=== PATIENT | male | born 1960 | race African-American/Black ===

== ENCOUNTER 2020-11-08 13:01 | Emergency (ER) | payer OTHER ==
[~2020-11-08] VITALS: Ht 170.2 cm; Wt 81.6 kg
[2020-11-08] MEDS ORDERED: HYDROCODONE/APAP 7.5MG-325MG 1 EA TAB PO PRN (16:15)
== END 2020-11-08 17:17 ==
LOC: ER 13:30
DX: S00.83XA Contusion of other part of head, initial encounter (principal); M25.552 Pain in left hip; W07.XXXA Fall from chair, initial encounter; Y92.128 Other place in nursing home as the place of occurrence of the external cause; I12.0 Hypertensive chronic kidney disease with stage 5 chronic kidney disease or end stage renal disease; E11.22 Type 2 diabetes mellitus with diabetic chronic kidney disease; N18.6 End stage renal disease; Z99.2 Dependence on renal dialysis; I50.9 Heart failure, unspecified; J44.9 Chronic obstructive pulmonary disease, unspecified; D64.9 Anemia, unspecified; K21.9 Gastro-esophageal reflux disease without esophagitis; E78.5 Hyperlipidemia, unspecified; I73.9 Peripheral vascular disease, unspecified; I25.2 Old myocardial infarction
CPT/HCPCS: 70450; 72125; 99283

== ENCOUNTER 2020-11-26 12:25 | Inpatient (IN) | payer MEDICAID, OTHER ==
[~2020-11-26] VITALS: Ht 170.2 cm; Wt 78.0 kg
[2020-11-26] MEDS ORDERED: ACETAMINOPHEN 650 MG SUPP PR ONE ×2 (12:57→13:45)
[2020-11-26] MEDS ORDERED: ACETAMINOPHEN 325 MG SUPP PR ONE (13:00)
[2020-11-26 13:11] LABS: BASOPHILS % 0.5 % (0.0-1.0); EOSINOPHILS % 0.6 % (0.0-6.0); HEMATOCRIT 39.9 % (38.2-49.6); HEMOGLOBIN 13.3 g/dL (14.0-18.0); LYMPHOCYTES # (AUTO) 0.8 (1.0-3.2); LYMPHOCYTES % 12.2 % (18.0-39.1); MEAN CORPUSCULAR HEMOGLOBIN 31.3 pg (28-32); MEAN CORPUSCULAR HGB CONC 33.3 g/dL (31-35); MEAN CORPUSCULAR VOLUME 93.9 fL (81-99); MONOCYTES # (AUTO) 0.6 (0.2-0.8); MONOCYTES % 9.7 % (4.4-11.3); NEUTROPHILS # (AUTO) 4.9 (2.1-6.9); NEUTROPHILS % 76.8 % (38.7-80.0); PLATELET COUNT 105 x10e3/uL (140-360); RED BLOOD COUNT 4.25 x10e6/uL (4.3-5.7); RED CELL DISTRIBUTION WIDTH 17.4 % (11.7-14.4)
[2020-11-26] MEDS ORDERED: CEFEPIME HCL 1 GM VIAL IV SCH (13:15)
[2020-11-26 13:29] LABS: ALBUMIN 3.1 g/dL (3.5-5.0); ALBUMIN/GLOBULIN RATIO 0.6 (0.8-2.0); CALCIUM 8.5 mg/dL (8.4-10.2); CREATININE, SERUM 6.96 mg/dL (0.72-1.25)
[2020-11-26] MEDS: CEFEPIME HCL 1GM 1 GM in SODIUM CHLORIDE 0.9% 50ML 50 ML IV SCH ×2 (13:32→13:46)
[2020-11-26] MEDS: SODIUM CHLORIDE 0.9% 1000ML 1,000 ML IV SCH (13:32)
[2020-11-26 13:48] LABS: BACTERIA,URINE MANY /HPF; CLARITY,URINE SL CLOUDY (CLEAR); COLOR,URINE AMBER (YELLOW); EPITHELIAL CELLS,URINE RARE /LPF; KETONES,URINE 1+ (NEGATIVE); LEUKOCYTE ESTERASE ,URINE TRACE (NEGATIVE); NITRITE,URINE NEGATIVE (NEGATIVE); PROTEIN,URINE DIPSTICK >=300 (NEGATIVE); URINE UROBILINOGEN 0.2 mg/dL (0.2 - 1)
[2020-11-26] MEDS: VANCOMYCIN 500MG/NS 0.9% 100ML 100 ML IV SCH (13:48)
[2020-11-26] MEDS ORDERED: CLOPIDOGREL75 MG PO (13:54)
[2020-11-26] MEDS ORDERED: ASCORBIC ACID500 M2 PO (13:54)
[2020-11-26] MEDS ORDERED: ASPIRIN81 MG PO (13:54)
[2020-11-26] MEDS ORDERED: DOCUSATE SODIU100 MG PO (13:54)
[2020-11-26] MEDS ORDERED: FAMOTIDINE20 MG PO (13:54)
[2020-11-26] MEDS ORDERED: LIPITOR20 MG PO (13:54)
[2020-11-26] MEDS ORDERED: BUMETANIDE1 MG PO (13:54)
[2020-11-26] MEDS ORDERED: HYDRALAZINE HCL25 MG PO (14:23)
[2020-11-26] MEDS ORDERED: HUMALOG100 UNIT/3 (14:23)
[2020-11-26] MEDS ORDERED: ADVAIR 100-501 EACH INH (14:23)
[2020-11-26] MEDS ORDERED: COMBIVENT RESPIM4 GM IH (14:23)
[2020-11-26] MEDS ORDERED: RENA-VITE RX T1 EACH PO (14:23)
[2020-11-26] MEDS ORDERED: VENTOLIN HFA18 GM INH (14:23)
[2020-11-26] MEDS ORDERED: ISOSORBIDE MONO30 MG PO (14:23)
[2020-11-26] MEDS ORDERED: RENAGEL800 MG PO (14:23)
[2020-11-26] MEDS ORDERED: GLYCOLAX119 GM PO (14:23)
[2020-11-26] MEDS ORDERED: MIDODRINE HCL5 MG PO (14:23)
[2020-11-26] MEDS ORDERED: HYDROCODONE PO (14:23)
[2020-11-26] MEDS ORDERED: LYRICA150 MG PO (14:23)
[2020-11-26] MEDS ORDERED: NITROGLYCERIN0.4 MG SL (14:23)
[2020-11-26] MEDS ORDERED: IOPAMIDOL 370 MG/ML 200 ML INFUS..BTL INJ ONE (14:29)
[2020-11-26] MEDS ORDERED: SODIUM CHLORIDE 0.9% 50ML 50 ML ONE (14:29)
[2020-11-26] MEDS ORDERED: DEXTROSE 50% SYRINGE 50 ML IV PRN (14:45)
[2020-11-26 16:00] VITALS: BP 105/74
[2020-11-26 16:08] VITALS: BP 105/74
[2020-11-26] MEDS: INSULIN LISPRO 100 UNIT/1 ML 3ML VIAL SQ SCH ×2 (16:30→21:00)
[2020-11-26 20:00] VITALS: BP 105/74
[2020-11-26 20:28] VITALS: BP 102/78
[2020-11-27] VITALS (7 sets, daily range): BP systolic 98–142; BP diastolic 72–87
[2020-11-27] MEDS: VANCOMYCIN 500MG/NS 0.9% 100ML 100 ML IV SCH ×2 (03:46→14:16)
[2020-11-27] MEDS: SODIUM CHLORIDE 0.9% 1000ML 1,000 ML IV SCH ×2 (03:47→10:45)
[2020-11-27] MEDS ORDERED: SODIUM CHLORIDE 0.9% 100 ML ONE (03:51)
[2020-11-27 06:13] LABS: BASOPHILS % 0.6 % (0.0-1.0); EOSINOPHILS # (AUTO) 0.1 (0.0-0.4); EOSINOPHILS % 0.9 % (0.0-6.0); HEMATOCRIT 38.1 % (38.2-49.6); HEMOGLOBIN 12.7 g/dL (14.0-18.0); LYMPHOCYTES % 17.9 % (18.0-39.1); MEAN CORPUSCULAR HEMOGLOBIN 30.9 pg (28-32); MEAN CORPUSCULAR HGB CONC 33.3 g/dL (31-35); MEAN CORPUSCULAR VOLUME 92.7 fL (81-99); MONOCYTES # (AUTO) 0.7 (0.2-0.8); MONOCYTES % 12.4 % (4.4-11.3); NEUTROPHILS # (AUTO) 3.6 (2.1-6.9); PLATELET COUNT 106 x10e3/uL (140-360); RED BLOOD COUNT 4.11 x10e6/uL (4.3-5.7); RED CELL DISTRIBUTION WIDTH 17.2 % (11.7-14.4)
[2020-11-27 07:14] LABS: CALCIUM 8.4 mg/dL (8.4-10.2); CREATININE, SERUM 7.88 mg/dL (0.72-1.25)
[2020-11-27] MEDS: INSULIN LISPRO 100 UNIT/1 ML 3ML VIAL SQ SCH ×4 (07:30→21:00)
[2020-11-27] MEDS: CEFEPIME HCL 1GM 1 GM in SODIUM CHLORIDE 0.9% 50ML 50 ML IV SCH (14:16)
[2020-11-27] MEDS ORDERED: CEFEPIME HCL 1 GM VIAL ONE (14:17)
[2020-11-27] MEDS ORDERED: SODIUM CHLORIDE 0.9% 50ML 50 ML ONE (14:18)
[2020-11-27] MEDS: AZITHROMYCIN 500MG/NS 250 ML 250 ML IV SCH (16:00)
[2020-11-27] MEDS ORDERED: NITROGLYCERIN 0.4 MG SUBL SL SCH (16:00)
[2020-11-27] MEDS: HYDRALAZINE HCL 25 MG TAB PO SCH ×2 (16:15→22:00)
[2020-11-27] MEDS: DOCUSATE SODIUM 100 MG CAP PO SCH (17:39)
[2020-11-27] MEDS: BUMETANIDE 1 MG TAB PO SCH (17:39)
[2020-11-27] MEDS: PREGABALIN 75 MG CAP PO SCH (17:39)
[2020-11-27] MEDS ORDERED: SODIUM CHLORIDE 0.9% 1000ML 2,000 ML ONE (18:41)
[2020-11-27] MEDS: ALBUTEROL/IPRATROPIUM 3 ML NEB NEB SCH ×2 (20:10→23:00)
[2020-11-27] MEDS: SALMETEROL/FLUTICASONE 100/50 INH SCH (20:10)
[2020-11-27] MEDS ORDERED: HEPARIN SOD (PORCINE) 1000 UNIT/ML SDV ONE (23:15)
[2020-11-27] MEDS: ATORVASTATIN 20 MG TAB PO SCH (23:37)
[2020-11-27] MEDS: SEVELAMER CARBONATE 800 MG TAB PO SCH (23:37)
[2020-11-28] VITALS (7 sets, daily range): BP systolic 82–120; BP diastolic 39–69
[2020-11-28] MEDS: ALBUTEROL/IPRATROPIUM 3 ML NEB NEB SCH ×6 (03:00→23:42)
[2020-11-28] MEDS ORDERED: ACETAMINOPHEN 325 MG TAB PO PRN (04:45)
[2020-11-28] MEDS: HYDRALAZINE HCL 25 MG TAB PO SCH (06:00)
[2020-11-28 07:18] LABS: BASOPHILS % 0.5 % (0.0-1.0); EOSINOPHILS # (AUTO) 0.2 (0.0-0.4); EOSINOPHILS % 4.4 % (0.0-6.0); HEMATOCRIT 34.7 % (38.2-49.6); HEMOGLOBIN 11.9 g/dL (14.0-18.0); LYMPHOCYTES # (AUTO) 0.9 (1.0-3.2); LYMPHOCYTES % 20.6 % (18.0-39.1); MEAN CORPUSCULAR HEMOGLOBIN 31.4 pg (28-32); MEAN CORPUSCULAR HGB CONC 34.3 g/dL (31-35); MEAN CORPUSCULAR VOLUME 91.6 fL (81-99); MONOCYTES # (AUTO) 0.7 (0.2-0.8); MONOCYTES % 17.1 % (4.4-11.3); NEUTROPHILS # (AUTO) 2.4 (2.1-6.9); NEUTROPHILS % 57.2 % (38.7-80.0); PLATELET COUNT 81 x10e3/uL (140-360); RED BLOOD COUNT 3.79 x10e6/uL (4.3-5.7); RED CELL DISTRIBUTION WIDTH 17.2 % (11.7-14.4)
[2020-11-28] MEDS: INSULIN LISPRO 100 UNIT/1 ML 3ML VIAL SQ SCH ×4 (07:30→21:00)
[2020-11-28 07:38] LABS: ALBUMIN 2.6 g/dL (3.5-5.0); ALBUMIN/GLOBULIN RATIO 0.6 (0.8-2.0); ANION GAP 16.9 mmol/L (8-16); CALCIUM 8.3 mg/dL (8.4-10.2); CREATININE, SERUM 5.67 mg/dL (0.72-1.25); POTASSIUM 3.9 mmol/L (3.5-5.1)
[2020-11-28] MEDS: CEFEPIME HCL 1GM 1 GM in SODIUM CHLORIDE 0.9% 50ML 50 ML IV SCH ×2 (09:00→09:16)
[2020-11-28] MEDS: ISOSORBIDE MONONITRATE 30 MG TAB CR PO SCH (09:00)
[2020-11-28] MEDS: BUMETANIDE 1 MG TAB PO SCH ×2 (09:00→17:00)
[2020-11-28] MEDS: DOCUSATE SODIUM 100 MG CAP PO SCH ×2 (09:19→17:50)
[2020-11-28] MEDS: ASPIRIN 81 MG CHEW TAB PO SCH (09:19)
[2020-11-28] MEDS: FAMOTIDINE 20 MG TAB PO SCH (09:19)
[2020-11-28] MEDS: PREGABALIN 75 MG CAP PO SCH ×2 (09:19→17:51)
[2020-11-28] MEDS: CLOPIDOGREL BISULFATE 75 MG TAB PO SCH (09:19)
[2020-11-28] MEDS: SEVELAMER CARBONATE 800 MG TAB PO SCH ×3 (09:20→21:47)
[2020-11-28] MEDS: FOLIC ACID/CYANOCOB/PYRIDOXINE TAB PO SCH (09:20)
[2020-11-28] MEDS: SALMETEROL/FLUTICASONE 100/50 INH SCH ×2 (11:32→17:37)
[2020-11-28] MEDS: AZITHROMYCIN 500MG/NS 250 ML 250 ML IV SCH (15:25)
[2020-11-28] MEDS: MIDODRINE HCL 5 MG TABLET PO SCH (21:47)
[2020-11-28] MEDS: HYDROCODONE/APAP 7.5MG-325MG 1 EA TAB PO PRN (21:47)
[2020-11-28] MEDS: ATORVASTATIN 20 MG TAB PO SCH (21:47)
[2020-11-29] VITALS (9 sets, daily range): BP systolic 88–109; BP diastolic 63–76
[2020-11-29] MEDS: ALBUTEROL/IPRATROPIUM 3 ML NEB NEB SCH ×6 (03:45→23:00)
[2020-11-29 06:57] LABS: BASOPHILS % 0.2 % (0.0-1.0); EOSINOPHILS # (AUTO) 0.2 (0.0-0.4); EOSINOPHILS % 4.7 % (0.0-6.0); HEMATOCRIT 34.8 % (38.2-49.6); HEMOGLOBIN 11.8 g/dL (14.0-18.0); LYMPHOCYTES # (AUTO) 1.3 (1.0-3.2); LYMPHOCYTES % 28.3 % (18.0-39.1); MEAN CORPUSCULAR HEMOGLOBIN 31.4 pg (28-32); MEAN CORPUSCULAR HGB CONC 33.9 g/dL (31-35); MEAN CORPUSCULAR VOLUME 92.6 fL (81-99); MONOCYTES # (AUTO) 0.8 (0.2-0.8); MONOCYTES % 17.9 % (4.4-11.3); NEUTROPHILS # (AUTO) 2.2 (2.1-6.9); NEUTROPHILS % 48.7 % (38.7-80.0); PLATELET COUNT 90 x10e3/uL (140-360); RED BLOOD COUNT 3.76 x10e6/uL (4.3-5.7); RED CELL DISTRIBUTION WIDTH 17.2 % (11.7-14.4)
[2020-11-29] MEDS: INSULIN LISPRO 100 UNIT/1 ML 3ML VIAL SQ SCH ×4 (07:30→21:00)
[2020-11-29 07:39] LABS: ALBUMIN 2.6 g/dL (3.5-5.0); ALBUMIN/GLOBULIN RATIO 0.6 (0.8-2.0); ANION GAP 17.3 mmol/L (8-16); CREATININE, SERUM 7.02 mg/dL (0.72-1.25); POTASSIUM 4.3 mmol/L (3.5-5.1)
[2020-11-29] MEDS: SALMETEROL/FLUTICASONE 100/50 INH SCH ×2 (08:56→19:17)
[2020-11-29] MEDS: CLOPIDOGREL BISULFATE 75 MG TAB PO SCH (09:39)
[2020-11-29] MEDS: FOLIC ACID/CYANOCOB/PYRIDOXINE TAB PO SCH (09:39)
[2020-11-29] MEDS: ISOSORBIDE MONONITRATE 30 MG TAB CR PO SCH (09:39)
[2020-11-29] MEDS: DOCUSATE SODIUM 100 MG CAP PO SCH ×2 (09:39→16:31)
[2020-11-29] MEDS: SEVELAMER CARBONATE 800 MG TAB PO SCH ×3 (09:39→21:16)
[2020-11-29] MEDS: PREGABALIN 75 MG CAP PO SCH ×2 (09:39→16:31)
[2020-11-29] MEDS: CEFEPIME HCL 1GM 1 GM in SODIUM CHLORIDE 0.9% 50ML 50 ML IV SCH (09:39)
[2020-11-29] MEDS: BUMETANIDE 1 MG TAB PO SCH ×2 (09:39→16:31)
[2020-11-29] MEDS: MIDODRINE HCL 5 MG TABLET PO SCH ×2 (09:39→16:31)
[2020-11-29] MEDS: ASPIRIN 81 MG CHEW TAB PO SCH (09:39)
[2020-11-29] MEDS: FAMOTIDINE 20 MG TAB PO SCH (09:39)
[2020-11-29] MEDS: HYDROCODONE/APAP 7.5MG-325MG 1 EA TAB PO PRN ×2 (09:41→21:16)
[2020-11-29] MEDS: AZITHROMYCIN 500MG/NS 250 ML 250 ML IV SCH (15:09)
[2020-11-29] MEDS: ATORVASTATIN 20 MG TAB PO SCH (21:16)
[2020-11-30 00:32] VITALS: BP 88/64
[2020-11-30] MEDS: ALBUTEROL/IPRATROPIUM 3 ML NEB NEB SCH ×4 (02:30→15:00)
[2020-11-30 06:07] VITALS: BP 102/78
[2020-11-30] MEDS: INSULIN LISPRO 100 UNIT/1 ML 3ML VIAL SQ SCH ×3 (07:30→16:07)
[2020-11-30 08:02] VITALS: BP 95/75
[2020-11-30 08:18] VITALS: BP 95/75
[2020-11-30] MEDS: SALMETEROL/FLUTICASONE 100/50 INH SCH (08:49)
[2020-11-30] MEDS: BUMETANIDE 1 MG TAB PO SCH ×2 (09:00→16:06)
[2020-11-30] MEDS: DOCUSATE SODIUM 100 MG CAP PO SCH ×2 (09:00→16:06)
[2020-11-30] MEDS: SEVELAMER CARBONATE 800 MG TAB PO SCH ×2 (09:00→16:06)
[2020-11-30] MEDS: ASPIRIN 81 MG CHEW TAB PO SCH (09:00)
[2020-11-30] MEDS: CEFEPIME HCL 1GM 1 GM in SODIUM CHLORIDE 0.9% 50ML 50 ML IV SCH (09:00)
[2020-11-30] MEDS ORDERED: COLLAGENASE 5 GM TUBE TOP SCH (09:00)
[2020-11-30] MEDS: FOLIC ACID/CYANOCOB/PYRIDOXINE TAB PO SCH (09:00)
[2020-11-30] MEDS: ISOSORBIDE MONONITRATE 30 MG TAB CR PO SCH (09:00)
[2020-11-30] MEDS ORDERED: BALSAM PERU/CASTOR OIL 60 GM OINT...G. TP SCH (09:00)
[2020-11-30] MEDS: CLOPIDOGREL BISULFATE 75 MG TAB PO SCH (09:00)
[2020-11-30] MEDS: PREGABALIN 75 MG CAP PO SCH ×2 (09:00→16:06)
[2020-11-30] MEDS: MIDODRINE HCL 5 MG TABLET PO SCH ×2 (09:15→16:06)
[2020-11-30] MEDS: FAMOTIDINE 20 MG TAB PO SCH (09:15)
[2020-11-30] MEDS ORDERED: ONDANSETRON HCL INJ 2MG/ML 2ML 2 MG/ML VIAL IV PRN (09:30)
[2020-11-30] MEDS ORDERED: ONDANSETRON HCL INJ 2MG/ML 2ML 2 MG/ML VIAL IV ONE (09:45)
[2020-11-30] MEDS ORDERED: SODIUM CHLORIDE 0.9% 1000ML 2,000 ML IV PRN (11:45)
[2020-11-30] MEDS ORDERED: ALBUMIN 25% 12.5GM 0.25 GM/ML BTL IV PRN (11:45)
[2020-11-30] MEDS ORDERED: HEPARIN SOD (PORCINE) 1000 UNIT/ML SDV IV PRN (11:45)
[2020-11-30] MEDS ORDERED: SODIUM CHLORIDE 0.9% 250ML 500 ML IV PRN (11:45)
[2020-11-30 11:47] VITALS: BP 109/74
[2020-11-30 15:56] VITALS: BP 100/65
[2020-11-30] MEDS: AZITHROMYCIN 500MG/NS 250 ML 250 ML IV SCH (16:06)
== END 2020-11-30 18:08 | DRG 177 ==
LOC: ER 12:32 → ERHOLD 15:21 → MED/SURG3 15:42
PROC: 5A1D70Z Performance of Urinary Filtration, Intermittent, Less than 6 Hours Per Day (ICD-10-PCS; principal; 2020-11-27)
DX: J15.6 Pneumonia due to other Gram-negative bacteria (principal); N18.6 End stage renal disease; I50.33 Acute on chronic diastolic (congestive) heart failure; J44.0 Chronic obstructive pulmonary disease with (acute) lower respiratory infection; I13.2 Hypertensive heart and chronic kidney disease with heart failure and with stage 5 chronic kidney disease, or end stage renal disease; I69.354 Hemiplegia and hemiparesis following cerebral infarction affecting left non-dominant side; E11.22 Type 2 diabetes mellitus with diabetic chronic kidney disease; J44.9 Chronic obstructive pulmonary disease, unspecified; Z20.822 Contact with and (suspected) exposure to COVID-19; Z99.2 Dependence on renal dialysis; Z79.899 Other long term (current) drug therapy
CPT/HCPCS: 36415; 51700; 71045; 74177; 80048; 80053; 81001; 82948; 83605; 83690; 83880; 84484; 85025; 86704; 86706; 87040; 87071; 87086; 87205; 87350; 93005; 94640; 99251; 99284; J0456; J0692; J1644; J2405; J3370; J7030; J7050; Q9967; U0002

== ENCOUNTER 2020-12-17 08:39 | Inpatient (IN) | payer MEDICAID ==
[~2020-12-17] VITALS: Ht 170.2 cm; Wt 78.0 kg
[~2020-12-17 08:39] MED LIST: ADVAIR 100-501 EACH INH; ASCORBIC ACID500 M2 PO; ASPIRIN81 MG PO; BUMETANIDE1 MG PO; CLOPIDOGREL75 MG PO; COMBIVENT RESPIM4 GM IH; DOCUSATE SODIU100 MG PO; FAMOTIDINE20 MG PO; GLYCOLAX119 GM PO; HUMALOG100 UNIT/3; HYDRALAZINE HCL25 MG PO; HYDROCODONE PO; ISOSORBIDE MONO30 MG PO; LIPITOR20 MG PO; LYRICA150 MG PO; MIDODRINE HCL5 MG PO; NITROGLYCERIN0.4 MG SL; RENA-VITE RX T1 EACH PO; RENAGEL800 MG PO; VENTOLIN HFA18 GM INH
[2020-12-17] MEDS ORDERED: CEFEPIME 2 GM/NS 0.9% 100 ML 100 ML IV STA ×2 (09:26→10:31)
[2020-12-17 09:27] LABS: ABG HCO3 21 mmol/L (22-26); ABG PCO2 33 mmHg (35-45); ABG PH 7.41 (7.35-7.45); ABG PO2 70 mmHg (80-105); ABG TCO2 22
[2020-12-17 09:28] LABS: BASOPHILS % 0.4 % (0.0-1.0); EOSINOPHILS % 0.4 % (0.0-6.0); HEMATOCRIT 40.6 % (38.2-49.6); HEMOGLOBIN 13.2 g/dL (14.0-18.0); LYMPHOCYTES # (AUTO) 0.6 (1.0-3.2); LYMPHOCYTES % 11.9 % (18.0-39.1); MEAN CORPUSCULAR HEMOGLOBIN 31.4 pg (28-32); MEAN CORPUSCULAR HGB CONC 32.5 g/dL (31-35); MEAN CORPUSCULAR VOLUME 96.4 fL (81-99); MONOCYTES # (AUTO) 0.4 (0.2-0.8); MONOCYTES % 7.1 % (4.4-11.3); NEUTROPHILS # (AUTO) 4.3 (2.1-6.9); NEUTROPHILS % 79.5 % (38.7-80.0); PLATELET COUNT 139 x10e3/uL (140-360); RED BLOOD COUNT 4.21 x10e6/uL (4.3-5.7); RED CELL DISTRIBUTION WIDTH 17.5 % (11.7-14.4)
[2020-12-17] MEDS ORDERED: CEFTRIAXONE SOD 1 GM/50 ML BAG IV ONE (09:30)
[2020-12-17] MEDS ORDERED: SODIUM CHLORIDE 0.9% 500ML 500 ML IV ONE ×2 (09:30→15:00)
[2020-12-17 09:39] LABS: CLARITY,URINE CLOUDY (CLEAR); COLOR,URINE AMBER (YELLOW); KETONES,URINE TRACE (NEGATIVE); LEUKOCYTE ESTERASE ,URINE NEGATIVE (NEGATIVE); NITRITE,URINE NEGATIVE (NEGATIVE); PROTEIN,URINE DIPSTICK >=300 (NEGATIVE); URINE UROBILINOGEN 0.2 mg/dL (0.2 - 1)
[2020-12-17 09:53] LABS: BACTERIA,URINE MODERATE /HPF; EPITHELIAL CELLS,URINE FEW /LPF; WBC,URINE (MAN) 0-5 /HPF (0-5)
[2020-12-17] MEDS ORDERED: VANCOMYCIN 1GM/NS 250 ML 250 ML IV ONE (10:00)
[2020-12-17] MEDS ORDERED: CEFTRIAXONE SOD 1 GM in SODIUM CHLORIDE 0.9% 50ML 50 ML IV ONE (10:00)
[2020-12-17 10:50] LABS: ALBUMIN 3.2 g/dL (3.5-5.0); ALBUMIN/GLOBULIN RATIO 0.5 (0.8-2.0); ANION GAP 21.3 mmol/L (8-16); CALCIUM 9.1 mg/dL (8.4-10.2); CREATININE, SERUM 6.69 mg/dL (0.72-1.25)
[2020-12-17 10:51] LABS: POTASSIUM 6.3 mmol/L (3.5-5.1)
[2020-12-17] MEDS ORDERED: SODIUM BICARBONATE 8.4% INJ 50 ML SYR IV STA (10:59)
[2020-12-17] MEDS ORDERED: DEXTROSE 50% SYRINGE 50 ML IV STA (10:59)
[2020-12-17] MEDS ORDERED: INSULIN REGULAR, HUMAN 100 UNIT/1 ML 3ML VIAL IV ONE (11:00)
[2020-12-17] MEDS ORDERED: CALCIUM GLUCONATE 10% INJ 4.65 MEQ in SODIUM CHLORIDE 0.9% 50ML 50 ML IV ONE (11:00)
[2020-12-17 11:11] LABS: CREATINE KINASE MB 1.8 ng/mL (0-5.0)
[2020-12-17 11:19] LABS: B-TYPE NATRIURETIC PEPTIDE2 91.2 pg/mL (0-100)
[2020-12-17 12:04] LABS: INR 1.3; PROTHROMBIN TIME 16.9 seconds (11.9-14.5)
[2020-12-17 12:05] LABS: PARTIAL THROMBOPLASTIN TIME 41.7 seconds (23.8-35.5)
[2020-12-17] MEDS: INSULIN LISPRO 100 UNIT/1 ML 3ML VIAL SQ SCH ×3 (12:39→23:37)
[2020-12-17] MEDS: PIPERACILLIN/TAZOBACTAM 2.25 GM in SODIUM CHLORIDE 0.9% 50ML 50 ML IV SCH ×2 (14:14→22:00)
[2020-12-17] MEDS: DEXTROSE 50% SYRINGE 50 ML IV PRN ×2 (14:14→23:34)
[2020-12-17 17:32] VITALS: BP 104/89
[2020-12-17 17:43] VITALS: BP 104/89
[2020-12-17 17:51] VITALS: BP 104/89
[2020-12-17 20:00] VITALS: BP 153/113
[2020-12-17 21:00] VITALS: BP 153/113
[2020-12-17] MEDS ORDERED: SODIUM CHLORIDE 0.9% 250ML 250 ML ONE (21:57)
[2020-12-17] MEDS ORDERED: NITROGLYCERIN 0.4 MG SUBL SL PRN (23:45)
[2020-12-17] MEDS ORDERED: ALBUTEROL SULFATE HFA 8GM INHALATION AEROSOL INH PRN (23:45)
[2020-12-17] MEDS ORDERED: HYDROCODONE/APAP 10MG-325MG TAB PO PRN (23:45)
[2020-12-18] VITALS: BP 100/81
[2020-12-18 04:00] VITALS: BP 95/55
[2020-12-18] MEDS: HYDRALAZINE HCL 25 MG TAB PO SCH ×2 (05:23→14:00)
[2020-12-18] MEDS: IPRATROPIUM/ALBUTEROL SULFATE 4 GM INH INH SCH ×2 (05:54→11:50)
[2020-12-18] MEDS: INSULIN LISPRO 100 UNIT/1 ML 3ML VIAL SQ SCH ×2 (05:59→11:55)
[2020-12-18] MEDS: PIPERACILLIN/TAZOBACTAM 2.25 GM in SODIUM CHLORIDE 0.9% 50ML 50 ML IV SCH ×2 (05:59→14:00)
[2020-12-18 06:18] LABS: BASOPHILS % 0.3 % (0.0-1.0); EOSINOPHILS # (AUTO) 0.2 (0.0-0.4); EOSINOPHILS % 4.7 % (0.0-6.0); HEMATOCRIT 31.2 % (38.2-49.6); HEMOGLOBIN 10.3 g/dL (14.0-18.0); LYMPHOCYTES # (AUTO) 0.5 (1.0-3.2); LYMPHOCYTES % 14.4 % (18.0-39.1); MEAN CORPUSCULAR HEMOGLOBIN 31.5 pg (28-32); MEAN CORPUSCULAR VOLUME 95.4 fL (81-99); MONOCYTES # (AUTO) 0.4 (0.2-0.8); MONOCYTES % 11.3 % (4.4-11.3); NEUTROPHILS # (AUTO) 2.2 (2.1-6.9); PLATELET COUNT 77 x10e3/uL (140-360); RED BLOOD COUNT 3.27 x10e6/uL (4.3-5.7); RED CELL DISTRIBUTION WIDTH 17.4 % (11.7-14.4)
[2020-12-18 06:43] LABS: CREATINE KINASE MB 1.2 ng/mL (0-5.0)
[2020-12-18 06:57] LABS: ALBUMIN 2.5 g/dL (3.5-5.0); ALBUMIN/GLOBULIN RATIO 0.5 (0.8-2.0); ANION GAP 15.3 mmol/L (8-16); CALCIUM 8.2 mg/dL (8.4-10.2); CREATININE, SERUM 4.13 mg/dL (0.72-1.25); POTASSIUM 4.3 mmol/L (3.5-5.1)
[2020-12-18 08:09] VITALS: BP 93/72
[2020-12-18 08:10] VITALS: BP 93/72
[2020-12-18] MEDS: DOCUSATE SODIUM 100 MG CAP PO SCH ×2 (09:00→09:55)
[2020-12-18] MEDS ORDERED: SALMETEROL/FLUTICASONE 100/50 INH SCH (09:00)
[2020-12-18] MEDS ORDERED: FAMOTIDINE 20 MG TAB PO SCH (09:00)
[2020-12-18] MEDS ORDERED: POLYETHYLENE GLYCOL 3350 17 GM PACK PO SCH (09:00)
[2020-12-18] MEDS: SEVELAMER CARBONATE 800 MG TAB PO SCH ×2 (09:00→12:03)
[2020-12-18] MEDS ORDERED: CLOPIDOGREL BISULFATE 75 MG TAB PO SCH (09:00)
[2020-12-18] MEDS: BUMETANIDE 1 MG TAB PO SCH ×2 (09:00→09:55)
[2020-12-18] MEDS ORDERED: ASPIRIN 81 MG CHEW TAB PO SCH (09:00)
[2020-12-18] MEDS ORDERED: PREGABALIN 75 MG CAP PO SCH (09:00)
[2020-12-18] MEDS ORDERED: ASCORBIC ACID 500 MG TAB PO SCH (09:00)
[2020-12-18] MEDS ORDERED: MIDODRINE HCL 5 MG TABLET PO SCH (09:00)
[2020-12-18] MEDS ORDERED: ISOSORBIDE MONONITRATE 30 MG TAB CR PO SCH (09:00)
[2020-12-18] MEDS ORDERED: FOLIC ACID/CYANOCOB/PYRIDOXINE TAB PO SCH (09:30)
[2020-12-18 11:35] VITALS: BP 91/64
[2020-12-18 15:45] VITALS: BP 92/65
[2020-12-18] MEDS ORDERED: ATORVASTATIN 20 MG TAB PO SCH (21:00)
== END 2020-12-18 16:53 | DRG 871 ==
LOC: ER 08:43 → ERHOLD 11:48 → MED/SURG3 17:18
PROC: 5A1D70Z Performance of Urinary Filtration, Intermittent, Less than 6 Hours Per Day (ICD-10-PCS; principal; 2020-12-17)
DX: A41.9 Sepsis, unspecified organism (principal); N18.6 End stage renal disease; I12.0 Hypertensive chronic kidney disease with stage 5 chronic kidney disease or end stage renal disease; I69.354 Hemiplegia and hemiparesis following cerebral infarction affecting left non-dominant side; E87.70 Fluid overload, unspecified; R65.20 Severe sepsis without septic shock; Z99.2 Dependence on renal dialysis; L89.626 Pressure-induced deep tissue damage of left heel; L89.616 Pressure-induced deep tissue damage of right heel; E11.22 Type 2 diabetes mellitus with diabetic chronic kidney disease; D64.9 Anemia, unspecified; Z74.01 Bed confinement status; Z89.431 Acquired absence of right foot; Z79.4 Long term (current) use of insulin; Z20.822 Contact with and (suspected) exposure to COVID-19
CPT/HCPCS: 36415; 36600; 51700; 70450; 71045; 80053; 81001; 82140; 82550; 82553; 82805; 82948; 83605; 83735; 83880; 84484; 85025; 85610; 85730; 87040; 87086; 93005; 94664; 99284; J0610; J1817; J2543; J3370; J7040; J7050; J7799; U0002

== ENCOUNTER 2021-03-16 13:43 | Observation (INO) | payer MEDICAID ==
[~2021-03-16] VITALS: Ht 170.2 cm; Wt 80.5 kg
[2021-03-16 15:18] LABS: ANION GAP 21.9 mmol/L (8-16); CALCIUM 8.6 mg/dL (8.4-10.2); CREATININE, SERUM 9.6 mg/dL (0.72-1.25)
[2021-03-16 15:20] LABS: POTASSIUM 6.9 mmol/L (3.5-5.1)
[2021-03-16] MEDS ORDERED: CALCIUM GLUCONATE 10% INJ 13.95 MEQ in SODIUM CHLORIDE 0.9% 100 ML 100 ML IV ONE (15:50)
[2021-03-16 17:28] LABS: BASOPHILS % 0.7 % (0.0-1.0); EOSINOPHILS # (AUTO) 0.1 (0.0-0.4); EOSINOPHILS % 2.2 % (0.0-6.0); HEMATOCRIT 39.2 % (38.2-49.6); HEMOGLOBIN 12.8 g/dL (14.0-18.0); LYMPHOCYTES # (AUTO) 1.6 (1.0-3.2); LYMPHOCYTES % 34.7 % (18.0-39.1); MEAN CORPUSCULAR HEMOGLOBIN 32.4 pg (28-32); MEAN CORPUSCULAR HGB CONC 32.7 g/dL (31-35); MEAN CORPUSCULAR VOLUME 99.2 fL (81-99); MONOCYTES # (AUTO) 0.6 (0.2-0.8); MONOCYTES % 13.9 % (4.4-11.3); NEUTROPHILS # (AUTO) 2.2 (2.1-6.9); NEUTROPHILS % 48.3 % (38.7-80.0); PLATELET COUNT 117 x10e3/uL (140-360); RED BLOOD COUNT 3.95 x10e6/uL (4.3-5.7); RED CELL DISTRIBUTION WIDTH 14.9 % (11.7-14.4)
[2021-03-16] MEDS ORDERED: NITROGLYCERIN 0.4 MG SUBL SL PRN (18:00)
[2021-03-16] MEDS ORDERED: ALBUTEROL SULFATE HFA 8GM INHALATION AEROSOL INH PRN (18:00)
[2021-03-16] MEDS: HYDROCODONE/APAP 10MG-325MG TAB PO PRN (18:05)
[2021-03-16] MEDS ORDERED: SODIUM CHLORIDE 0.9% 1000ML 2,000 ML ONE (18:35)
[2021-03-16] MEDS ORDERED: IPRATROPIUM/ALBUTEROL SULFATE 4 GM INH INH SCH (19:00)
[2021-03-16 19:08] VITALS: BP 98/60
[2021-03-16 19:48] VITALS: BP 98/60
[2021-03-16 20:33] VITALS: BP 98/60
[2021-03-16] MEDS: SEVELAMER CARBONATE 800 MG TAB PO SCH (21:00)
[2021-03-16] MEDS ORDERED: ATORVASTATIN 40 MG TAB PO SCH (21:00)
[2021-03-16] MEDS: HYDRALAZINE HCL 25 MG TAB PO SCH (22:00)
[2021-03-17] VITALS (7 sets, daily range): BP systolic 86–92; BP diastolic 52–64
[2021-03-17] MEDS: HYDROCODONE/APAP 10MG-325MG TAB PO PRN (01:43)
[2021-03-17] MEDS: HYDRALAZINE HCL 25 MG TAB PO SCH (05:35)
[2021-03-17 05:41] LABS: BASOPHILS % 0.5 % (0.0-1.0); EOSINOPHILS # (AUTO) 0.1 (0.0-0.4); EOSINOPHILS % 3.4 % (0.0-6.0); HEMATOCRIT 34.5 % (38.2-49.6); HEMOGLOBIN 11.4 g/dL (14.0-18.0); LYMPHOCYTES # (AUTO) 1.2 (1.0-3.2); LYMPHOCYTES % 30.5 % (18.0-39.1); MEAN CORPUSCULAR HEMOGLOBIN 32.6 pg (28-32); MEAN CORPUSCULAR VOLUME 98.6 fL (81-99); MONOCYTES # (AUTO) 0.7 (0.2-0.8); MONOCYTES % 18.3 % (4.4-11.3); NEUTROPHILS # (AUTO) 1.8 (2.1-6.9); PLATELET COUNT 103 x10e3/uL (140-360); RED CELL DISTRIBUTION WIDTH 15.2 % (11.7-14.4)
[2021-03-17 06:03] LABS: ANION GAP 17.4 mmol/L (8-16); CALCIUM 8.5 mg/dL (8.4-10.2); CREATININE, SERUM 6.36 mg/dL (0.72-1.25); POTASSIUM 4.4 mmol/L (3.5-5.1)
[2021-03-17] MEDS ORDERED: SALMETEROL/FLUTICASONE 100/50 INH SCH (07:00)
[2021-03-17] MEDS: SEVELAMER CARBONATE 800 MG TAB PO SCH (08:21)
[2021-03-17] MEDS ORDERED: MIDODRINE HCL 5 MG TABLET PO SCH (09:00)
[2021-03-17] MEDS ORDERED: ASPIRIN 81 MG CHEW TAB PO SCH (09:00)
[2021-03-17] MEDS ORDERED: CLOPIDOGREL BISULFATE 75 MG TAB PO SCH (09:00)
[2021-03-17] MEDS ORDERED: ASCORBIC ACID 500 MG TAB PO SCH (09:00)
[2021-03-17] MEDS ORDERED: PREGABALIN 75 MG CAP PO SCH (09:00)
[2021-03-17] MEDS ORDERED: BUMETANIDE 1 MG TAB PO SCH (09:00)
[2021-03-17] MEDS ORDERED: ISOSORBIDE MONONITRATE 30 MG TAB CR PO SCH (09:00)
[2021-03-17] MEDS ORDERED: DOCUSATE SODIUM 100 MG CAP PO SCH (09:00)
[2021-03-17] MEDS ORDERED: FAMOTIDINE 20 MG TAB PO SCH (09:00)
[2021-03-17] MEDS ORDERED: SODIUM CHLORIDE 0.9% 500ML 500 ML ONE (10:33)
[2021-03-17] MEDS ORDERED: SODIUM CHLORIDE 0.9% 500ML 500 ML IV ONE (11:15)
== END 2021-03-17 14:37 ==
LOC: ER 13:45 → ERHOLD 15:51 → MED/SURG3 18:13
DX: E87.5 Hyperkalemia (principal); E11.22 Type 2 diabetes mellitus with diabetic chronic kidney disease; I12.0 Hypertensive chronic kidney disease with stage 5 chronic kidney disease or end stage renal disease; N18.6 End stage renal disease; Z99.2 Dependence on renal dialysis; Z91.15 Patient's noncompliance with renal dialysis; Z79.899 Other long term (current) drug therapy; D63.1 Anemia in chronic kidney disease; E11.42 Type 2 diabetes mellitus with diabetic polyneuropathy; E78.1 Pure hyperglyceridemia; Z20.822 Contact with and (suspected) exposure to COVID-19; B19.20 Unspecified viral hepatitis C without hepatic coma; Z79.4 Long term (current) use of insulin
CPT/HCPCS: 36415 ×2; 80048 ×2; 82948; 85025 ×2; 90970; 93005; 97602; 99251; 99284; G0378 ×2; J0610; J7030; J7040; U0002